=== PATIENT | female | born 1940 | race Caucasian/White ===

== ENCOUNTER → 2017-02-21 | Day surgery (SDC) | payer MEDICARE, BC ==
[~2017-02-21] MED LIST: AMOX500C PO; ARIC10TA PO; ARIC10TA2 PO; ASCO500T PO; ASPI1TAB69 PO; ASPI81TA11 PO; CLON1 PO; LEXA10TA PO; LIDOCAINE HCL 1% 30 ML VIAL INFIL ONE; MEPERIDINE HCL 25 MG/ML VIAL IV ONE; MIDAZOLAM HCL 2 MG/2 ML VIAL IV ONE; MOTR200T4 PO; MULT-135 PO; MULTTAB67 PO; NEXI20CA PO; OXYC-433 PO; PERC10TA27 PO; POTA-163 PO; PROPOFOL 200 MG/20 ML AMP IV ONE; SODIUM CHLORIDE 0.9% 10 ML VIAL ONE; TORS20TA PO; TRAZ300T2 PO; TRAZ50TA12 PO; VITA10007 PO; diphenhydrAMINE HCL 50 MG/ML VIAL IV ONE; methylPREDNISolone ACETATE 40 MG/ML VIAL I-ARTICULR ONE
--- NOTE | 2017-02-25 15:49 | M6 ---
cc: CELESTINO JOHNSON M.D. DATE: 02/21/2017 DATE OF : 1940. PROCEDURE Radiofrequency rhizotomy multiple bilateral cervical facet joints (bilateral C3-4, C4-5 at C5-6 facet joints. History and physical was completed and signed. Consent was signed. Procedure site was marked. Medications were listed and reconciled. Pain score was recorded. Allergies were noted. Time out was taken. Fluoroscopy time was recorded where applicable. Sedation was administered or directed by Dr. Johnson. The patient was given oxygen. The patient was monitored by a registered nurse. Total procedure time was greater than 15 minutes. IV was started, blood pressure cuff, pulse oximeter and EKG were applied. The patient was placed in the prone position on a Suhail table, sedated with small amounts of Versed and propofol titrated to effect. Vital signs were monitored and remained stable throughout the procedure. The cervical area was prepped with alcohol and 10% Betadine solution and draped with sterile drapes. Fluoroscopy was used to visualize the target areas which were the "waist" between the cervical facet joints bilaterally at C3-4, C4-5 and C5-6. The skin was infiltrated with 1% Xylocaine using a 27 gauge needle. Then an insulated 20-gauge radiofrequency needle with a 5-mm tip was advanced to the above-mentioned target areas. Fluoroscopy was used to confirm the needle was not near the nerve root. Once properly positioned, thermal lesions took place at 80 degrees centigrade times 100 seconds. This was followed by injection of a small amount of Depo-Medrol at each location for a total of 60 mg of Depo-Medrol. Following the procedure, the patient was taken to the recovery room with stable vital signs, neurologically intact. W. MD GABI Diggs/VICTOR MANUEL /8:15 AM /3:38 PM
== END | disposition home or self-care (01) ==
LOC: PHSDC 06:38
PROVIDERS: ATTEND Pain Medicine Interventional Pain Medicine
DX: M54.2 Cervicalgia (principal)
CPT/HCPCS: 64633; 64634; 99152; 99153; J1030; J1200; J2175; J2250; 64636

== ENCOUNTER → 2017-04-27 | Outpatient (CLI) | payer MEDICARE, BC ==
[~2017-04-27] MED LIST changes: -AMOX500C PO; -ARIC10TA PO; -ASPI1TAB69 PO; -LIDOCAINE HCL 1% 30 ML VIAL INFIL ONE; -MEPERIDINE HCL 25 MG/ML VIAL IV ONE; -MIDAZOLAM HCL 2 MG/2 ML VIAL IV ONE; -MOTR200T4 PO; -MULT-135 PO; -PERC10TA27 PO; -PROPOFOL 200 MG/20 ML AMP IV ONE; -SODIUM CHLORIDE 0.9% 10 ML VIAL ONE; -TRAZ50TA12 PO; -VITA10007 PO; -diphenhydrAMINE HCL 50 MG/ML VIAL IV ONE; -methylPREDNISolone ACETATE 40 MG/ML VIAL I-ARTICULR ONE
[2017-04-27 14:15] LABS: GLUCOSE,URINE NEG (NEG); KETONE, URINE NEG (NEG); NITRITE,URINE NEG (NEG); PH, URINE 5.5 (5.0-8.5)
[2017-04-27 14:23] LABS: BLOOD, URINE MOD (NEG)
[2017-04-27 14:25] LABS: BASOPHIL % 0.6 % (0.0-2.0); EOSINOPHIL # 0.2 TH/MM3 (0-0.4); EOSINOPHIL % 2.2 % (0.0-4.0); HEMATOCRIT 40.7 % (35.0-46.0); HEMO FLAGS DIFF FINAL; LYMPH % 31.9 % (9.0-44.0); LYMPHOCYTE # 2.3 TH/MM3 (1.0-4.8); MEAN CELL VOLUME 91.2 FL (80.0-100.0); MEAN CORPUSCULAR HEMOGLOBIN 29.9 PG (27.0-34.0); MEAN CORPUSCULAR HGB CONC 32.8 % (32.0-36.0); MONO % 8.6 % (0.0-8.0); NEUT % 56.7 % (16.0-70.0); PLATELET COUNT 227 TH/MM3 (150-450); RED BLOOD COUNT 4.46 MIL/MM3 (4.00-5.30); WHITE BLOOD COUNT 7.1 TH/MM3 (4.0-11.0)
[2017-04-27 14:29] LABS: METHOD OF COLLECTION CLEAN CATCH; URINE COLOR YELLOW (YELLW/STRAW)
[2017-04-27 14:30] LABS: COMMENT (UR) CULT NOT INDICATED; CULTURE IF INDICATED CULT NOT INDICATED; RBC, URINE 15-19 /hpf (0-3); SQUAMOUS EPITHELIAL CELL URINE 0-5 /hpf (0-5); WBC, URINE 0-2 /hpf (0-5)
== END ==
LOC: PHPRE 12:52
PROVIDERS: ATTEND Pain Medicine Interventional Pain Medicine
DX: Z01.812 Encounter for preprocedural laboratory examination (principal); Z45.49 Encounter for adjustment and management of other implanted nervous system device
CPT/HCPCS: 36415; 81001; 84132; 85025

== ENCOUNTER → 2017-05-04 | Day surgery (SDC) | payer MEDICARE, BC ==
[~2017-05-04] VITALS: Ht 162.6 cm; Wt 78.6 kg
[~2017-05-04] MED LIST changes: +BUPIVACAINE/EPINEPHRINE 0.5% PF 30 ML VIAL ONE; +CHLORHEXIDINE GLUCONATE 2 % 1 PACK (2 CLOTHS) TOPICAL PRN; +FAMOTIDINE 20 MG/2 ML VIAL ONE; +HYDROmorphone HCL PF 4 MG/ML VIAL OTHER ONE; +INSULIN HUMAN REGULAR 1,000 UNITS/10 ML VIAL SQ PRN; +LACTATED RINGER'S 1000 ML INJ 1,000 ML ONE; +LACTATED RINGER'S 1000 ML IV PRN; +METOPROLOL TARTRATE 25 MG TAB PO PRN; +MIDAZOLAM HCL 2 MG/2 ML VIAL ONE; +ONDANSETRON HCL 4 MG/2 ML VIAL IV PUSH ONE; +POVIDONE IODINE 5% (ANTISEPSIS KIT) 4 APPLICATIONS EACH NARE PRN; +PROPOFOL 200 MG/20 ML AMP IV ONE; +SODIUM CHLORID 0.9% 500 ML IV PRN; +SODIUM CHLORIDE 0.9% 20 ML VIAL ONE; +SODIUM CHLORIDE 0.9% INJ 100 ML ONE; +SODIUM CHLORIDE 0.9% INJ 50 ML ONE; +VANCOMYCIN 500 MG VIAL ONE; +VANCOMYCIN 500 MG/NS 100 ML IV PRN; +ceFAZolin 1,000 MG/NS 100 ML IV SCH; +ceFAZolin INJ 1,000 MG VIAL ONE; +oxyCODONE/ACETAMINOPHEN 5 MG/325 MG TAB ONE
[2017-05-04 10:01] VITALS: BP 125/76; PULSE 74; RESP 24; TEMP 98; O2SAT 95
[2017-05-04 12:39] VITALS: PULSE 68
[2017-05-04 13:15] VITALS: TEMP 97.8
[2017-05-04 14:00] VITALS: BP 113/62; PULSE 77; RESP 14; O2SAT 98
--- NOTE | 2017-05-06 23:14 | M6 ---
cc: Marianne GLASGOW DATE 05/04/2017 DATE OF 1940 PROCEDURE Replacement of Medtronics SynchroMed pump. PREPROCEDURE DIAGNOSIS End of life of Medtronic SynchroMed pump POSTPROCEDURE DIAGNOSIS End of life of Medtronic SynchroMed pump PROCEDURE NOTE IV was started in the holding area. The patient was given IV antibiotics, taken to the operating room, placed in the supine position. All pressure points were checked and padded. She was given general anesthesia. Her abdomen was scrubbed with Chloraprep and draped with sterile drapes. The skin over the implanted pump in the right subcostal area was infiltrated with 0.5% Marcaine containing epinephrine. Then an incision was made and sharp and blunt dissection were used to free the implanted pump from the underlying tissue. Then, a new Medtronics SynchroMed pump was filled with sterile morphine solution on a side table and placed in a Dacron cuff. Then the old pump was removed from the intrathecal catheter and the new pump was connected to the intrathecal catheter by snapping the receptor over the nipple on the pump. Then the redundant catheter was placed behind the pump. The new pump was placed in the subcutaneous pocket and anchored to the underlying tissue using 2-0 Ethibond sutures. Then the incision was irrigated with Betadine solution and closure took place with 3-0 Monocryl in the subcuticular tissue and 3-0 nylon on the skin. Incisions were covered with sterile adhesive dressings. The patient was taken to the recovery room with stable vital signs neurologically intact. MD GABI Arevalo/ /12:48 PM /11:13 PM
== END | disposition home or self-care (01) ==
LOC: PHSDC 09:29
PROVIDERS: ATTEND Pain Medicine Interventional Pain Medicine
DX: Z45.49 Encounter for adjustment and management of other implanted nervous system device (principal)
CPT/HCPCS: 00300; 62362; C1772; J0690; J1170; J2250; J2405; J3010; J3370; J7120

== ENCOUNTER → 2017-12-25 | Day surgery (SDC) | payer MEDICARE, BC ==
[~2017-12-25] MED LIST changes: -ARIC10TA2 PO; +ARIC10TA9 PO; -ASPI81TA11 PO; +ASPI81TA23 PO; +BUPIVACAINE HCL PF 0.5% 30 ML VIAL ONE; -BUPIVACAINE/EPINEPHRINE 0.5% PF 30 ML VIAL ONE; -CHLORHEXIDINE GLUCONATE 2 % 1 PACK (2 CLOTHS) TOPICAL PRN; -FAMOTIDINE 20 MG/2 ML VIAL ONE; -HYDROmorphone HCL PF 4 MG/ML VIAL OTHER ONE; -INSULIN HUMAN REGULAR 1,000 UNITS/10 ML VIAL SQ PRN; -LACTATED RINGER'S 1000 ML INJ 1,000 ML ONE; -LACTATED RINGER'S 1000 ML IV PRN; -METOPROLOL TARTRATE 25 MG TAB PO PRN; -MIDAZOLAM HCL 2 MG/2 ML VIAL ONE; -ONDANSETRON HCL 4 MG/2 ML VIAL IV PUSH ONE; -POVIDONE IODINE 5% (ANTISEPSIS KIT) 4 APPLICATIONS EACH NARE PRN; -SODIUM CHLORID 0.9% 500 ML IV PRN; -SODIUM CHLORIDE 0.9% 20 ML VIAL ONE; -SODIUM CHLORIDE 0.9% INJ 100 ML ONE; -SODIUM CHLORIDE 0.9% INJ 50 ML ONE; +TRIAMCINOLONE ACETONIDE 40 MG/ML VIAL I-ARTICULR ONE; -VANCOMYCIN 500 MG VIAL ONE; -VANCOMYCIN 500 MG/NS 100 ML IV PRN; -ceFAZolin 1,000 MG/NS 100 ML IV SCH; -ceFAZolin INJ 1,000 MG VIAL ONE; +methylPREDNISolone ACETATE 40 MG/ML VIAL I-ARTICULR ONE; -oxyCODONE/ACETAMINOPHEN 5 MG/325 MG TAB ONE
--- NOTE | 2017-12-25 20:39 | M6 ---
cc: CELESTINO JOHNSON M.D. DATE: 12/25/2017 DATE OF 1940 PROCEDURE Fluoroscopically guided injection bilateral sacroiliac joints. History and physical was completed and signed. Consent was signed. Procedure site was marked. Medications were listed and reconciled. Pain score was recorded. Allergies were noted. Time out was taken. Fluoroscopy time was recorded where applicable. Sedation was administered or directed by Dr. Johnson. The patient was given oxygen. The patient was monitored by a registered nurse. Total procedure time was greater than 15 minutes. PROCEDURE NOTE: IV was started, blood pressure cuff, pulse oximeter and EKG were applied. The patient was placed in the prone position on a Suhail table sedated with small amounts of propofol titrated to effect. Vital signs were monitored and remained stable throughout the procedure. Sacral area was prepped with alcohol and 10% Betadine solution and draped with sterile drapes. Fluoroscopy was used shooting from medial to lateral to clearly visualize the posterior joint line of the bilateral sacroiliac joints. Separate sterile 22-gauge 5-inch spinal needles were advanced into these joints under fluoroscopic guidance. There was negative aspiration for blood or any other type of fluid and at each location the patient was given 2 mL of 0.5% Marcaine, 20 mg of Depo-Medrol, 20 mg of Kenalog. Following the procedure the patient was taken to the recovery room with stable vital signs neurologically intact. She will be evaluated immediately and with followup to determine if she has a subjective decrease in her usual pain and a corresponding objective increase in her functional capabilities. WMD GABI Slade/HODA /9:42 AM /8:32 PM
== END | disposition home or self-care (01) ==
LOC: PHSDC 07:44
PROVIDERS: ATTEND Pain Medicine Interventional Pain Medicine
DX: M54.5 Low back pain (principal); M25.572 Pain in left ankle and joints of left foot; M25.571 Pain in right ankle and joints of right foot
CPT/HCPCS: 99152; G0260; J1030; J3301; 27096

== ENCOUNTER 2018-01-20 16:57 | Emergency (ER) | payer MEDICARE, BC ==
[~2018-01-20] VITALS: Ht 165.1 cm; Wt 74.0 kg
[~2018-01-20 16:57] MED LIST changes: -BUPIVACAINE HCL PF 0.5% 30 ML VIAL ONE; -PROPOFOL 200 MG/20 ML AMP IV ONE; -TRIAMCINOLONE ACETONIDE 40 MG/ML VIAL I-ARTICULR ONE; -methylPREDNISolone ACETATE 40 MG/ML VIAL I-ARTICULR ONE
[2018-01-20 17:03] VITALS: BP 135/60; PULSE 79; RESP 16; TEMP 98.1; O2SAT 98
[2018-01-20] MEDS ORDERED: METF1000 PO (17:24)
[2018-01-20 17:55] VITALS: O2SAT 98
--- NOTE | 2018-01-20 17:57 | PD ---
HPI Chief Complaint: Chest Pain Time Seen by Provider: 17:53 Travel History International Travel<30 days: No Contact w/Intl Traveler<30days: No Traveled to known affect area: No History of Present Illness HPI Patient presents with complaints of 3 days of chest discomfort. States it is radiating down her right arm. States that she is mildly short of breath. Reports sinus pain and pressure general malaise and feet subjective fever. Positive for flu shot this year. Additionally complains of nausea, denies vomiting, denies diarrhea. No new rashes. No history of lung disease. No history of cardiac disease. She is a diabetic. Non-smoker. PFSH Past Medical History Arthritis: Yes Blood Disorders: No Anxiety: Yes Depression: Yes Cancer: Yes (SKIN) Cardiovascular Problems: Yes (MURMUR) COPD: Yes (hx of bronchitis frequently,hx of 5 spontaneous pnuemothroax) Diabetes: Yes Patient Takes Glucophage: Yes Diminished Hearing: No Endocrine: No Fibromyalgia: Yes Gastrointestinal Disorders: Yes (REFLUX, CHRONIC CONSTIPATION, DIVERTICULITIS) GERD: Yes Genitourinary: Yes (IMPLANT TO STIMULATE BLADDER) Hepatitis: No Hiatal Hernia: Yes Hypertension: Yes Immune Disorder: Yes (FIBROMYALGIA) Implanted Vascular Access Dvce: Yes (PAIN PUMP) Medical other: Yes (ELEVATED SERUM CHROMOGRANIN LEVEL) Musculoskeletal: Yes (OSTEOARTHRITIS, LUMBAR PAIN) Neurologic: Yes (OCCIPITAL NEURALGIA, FIBROMYALGIA) Psychiatric: Yes (DEPRESSION/ ANXIETY HX) Reproductive: No Respiratory: Yes (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 CD LEADS, CERVICAL Cardiac Surgery: No Ear Surgery: No Endocrine Surgery: No Eye Surgery: Yes (BILATERAL CATARACT EXTRACTION ) Genitourinary Surgery: Yes (BLADDER STIMULATOR LEFT BUTTOCKS) Gynecologic Surgery: Yes (OOPHERECTOMY, TOTAL HYSTERECTOMY) Hysterectomy: Yes (1995) Joint Replacement: Yes (BILATERAL KNEE; TOTAL LEFT HIP) Neurologic Surgery: Yes (3 LUMBAR SURGERIES; ANT CERV FUSION ) Oral Surgery: Yes (T&A) Pacemaker: No Thoracic Surgery: Yes (BILAT BREAST IMPLANTS X 2) Tonsillectomy: Yes (AND ADENOIDS) Other Surgery: Yes (back x 3) Social History Alcohol Use: No Tobacco Use: No (QUIT 35-40 YRS AGO) Substance Use: No Allergies-Medications (Allergen,Severity, Reaction): Coded Allergies: Sulfa (Sulfonamide Antibiotics) (Unverified Allergy, Severe, ERYTHEMA NODOSUM, 01/20/18) morphine (Unverified Allergy, Severe, itching, 01/20/18) codeine (Unverified Allergy, Intermediate, NAUSEA;LIGHT HEADED; FAINT, ) ciprofloxacin (Unverified Adverse Reaction, Severe, Cramping, 01/20/18) ABDOMINAL PAIN PT DENIES ALLERGY ON 01/22/15 Uncoded Allergies: MACADEMIA NUTS (Allergy, Unknown, VOMITING AND DIARRHEA, 12/03/15) Reported Meds & Prescriptions Reported Meds & Active Scripts Active Reported Metformin (Metformin HCl) 1,000 Mg Tab Unknown Dose PO BIDPC Klonopin (Clonazepam) 1 Mg Tab 1 Mg PO TID Ascorbic Acid 500 Mg Tab 1,000 Mg PO DAILY Aspirin EC (Aspirin) 81 Mg Tabdr 81 Mg PO DAILY Aricept (Donepezil HCl) 10 Mg Tablet 10 Mg PO DAILY Multiple Vitamin 1 Tab 1 Tab PO DAILY Oxycodone-Acetaminophen 10-325 mg Tab 1 Tab PO Q4H PRN Trazodone (Trazodone HCl) 300 Mg Tab 50 Mg PO HS Potassium Chloride ER (Potassium Chloride) 20 Meq Tab 20 Meq PO DAILY Torsemide 20 Mg Tab 20 Mg PO DAILY Nexium (Esomeprazole DR) 20 Mg Capdr 40 Mg PO BID Lexapro (Escitalopram Oxalate) 10 Mg Tab 20 Mg PO HS Review of Systems General / Constitutional: Positive: Fever Eyes: No: Visual changes HENT: Positive: Congestion, No: Headaches Cardiovascular: Positive: Chest Pain or Discomfort Respiratory: No: Shortness of Breath Gastrointestinal: No: Abdominal Pain Genitourinary: No: Dysuria Musculoskeletal: No: Pain Skin: No Rash Neurologic: No: Weakness Psychiatric: No: Depression Endocrine: No: Polydipsia Hematologic/Lymphatic: No: Easy Bruising Physical Exam Narrative GENERAL: Well-nourished, well-developed patient. SKIN: Focused skin assessment warm/dry. HEAD: Normocephalic. EYES: No scleral icterus. No injection or drainage. NECK: Supple, trachea midline. No JVD or lymphadenopathy. CARDIOVASCULAR: Regular rate and rhythm without murmurs, gallops, or rubs. RESPIRATORY: Breath sounds equal bilaterally. No accessory muscle use. GASTROINTESTINAL: Abdomen soft, non-tender, nondistended. MUSCULOSKELETAL: No cyanosis, or edema. BACK: Nontender without obvious deformity. No CVA tenderness. Data Data Last Documented VS Vital Signs Date Time Temp Pulse Resp B/P (MAP) Pulse Ox O2 Delivery O2 Flow Rate FiO2 01/20/18 18:11 101/51 (68) 98/55 (69) 01/20/18 17:55 98 Room Air 01/20/18 17:15 72 01/20/18 17:03 98.1 16 Orders Orders Electrocardiogram (01/20/18 17:53) Ckmb (Isoenzyme) Profile (01/20/18 17:53) Complete Blood Count With Diff (01/20/18 17:53) Comprehensive Metabolic Panel (01/20/18 17:53) Magnesium (Mg) (01/20/18 17:53) Prothrombin Time / Inr (Pt) (01/20/18 17:53) Act Partial Throm Time (Ptt) (01/20/18 17:53) Troponin I (01/20/18 17:53) Ecg Monitoring (01/20/18 17:53) Bilateral Bp Monitoring (01/20/18 17:53) Iv Access Insert/Monitor (01/20/18 17:53) Oximetry (01/20/18 17:53) Oxygen Administration (01/20/18 17:53) Aspirin Chew (Aspirin Chew) (01/20/18 18:00) Sodium Chloride 0.9% Flush (Ns Flush) (01/20/18 18:00) Chest, Pa & Lat (01/20/18 17:53) Influenzae A/B Antigen (01/20/18 17:53) Ondansetron Inj (Zofran Inj) (01/20/18 18:00) CKMB (01/20/18 18:05) CKMB% (01/20/18 18:05) Labs Laboratory Tests Test 01/20/18 18:05 White Blood Count 4.7 TH/MM3 Red Blood Count 4.32 MIL/MM3 Hemoglobin 10.8 GM/DL Hematocrit 34.9 % Mean Corpuscular Volume 80.9 FL Mean Corpuscular Hemoglobin 25.0 PG Mean Corpuscular Hemoglobin Concent 30.9 % Red Cell Distribution Width 16.3 % Platelet Count 180 TH/MM3 Mean Platelet Volume 8.1 FL Neutrophils (%) (Auto) 60.3 % Lymphocytes (%) (Auto) 23.8 % Monocytes (%) (Auto) 13.8 % Eosinophils (%) (Auto) 1.3 % Basophils (%) (Auto) 0.8 % Neutrophils # (Auto) 2.8 TH/MM3 Lymphocytes # (Auto) 1.1 TH/MM3 Monocytes # (Auto) 0.7 TH/MM3 Eosinophils # (Auto) 0.1 TH/MM3 Basophils # (Auto) 0.0 TH/MM3 CBC Comment DIFF FINAL Differential Comment Prothrombin Time 10.2 SEC Prothromb Time International Ratio 1.0 RATIO Activated Partial Thromboplast Time 28.9 SEC Blood Urea Nitrogen 19 MG/DL Creatinine 0.79 MG/DL Random Glucose 89 MG/DL Total Protein 6.6 GM/DL Albumin 3.0 GM/DL Calcium Level 8.6 MG/DL Magnesium Level 2.0 MG/DL Alkaline Phosphatase 85 U/L Aspartate Amino Transf (AST/SGOT) 37 U/L Alanine Aminotransferase (ALT/SGPT) 20 U/L Total Bilirubin 0.1 MG/DL Sodium Level 138 MEQ/L Potassium Level 4.8 MEQ/L Chloride Level 104 MEQ/L Carbon Dioxide Level 27.6 MEQ/L Anion Gap 6 MEQ/L Estimat Glomerular Filtration Rate 71 ML/MIN Total Creatine Kinase 105 U/L MDM Medical Decision Making Medical Screen Exam Complete: Yes Emergency Medical Condition: Yes Differential Diagnosis Acute coronary syndrome, sinusitis, influenza Narrative Course Assessment plan discussed with patient at bedside. EKG reveals a sinus rhythm rate of 64. Positive for flu B. Cardiac enzymes negative. Diagnosis Primary Impression: Influenza B Patient Instructions: General Instructions Additional Instructions: Encouraged rest fluids and Motrin or Tylenol. Follow-up with PCP. Return to emergency with any onset of new symptoms. Med/Other Pt SpecificInfo: Prescription(s) given Scripts Oseltamivir (Tamiflu) 75 Mg Cap 75 MG PO BID for Mgmt Viral Infection for 5 Days, #10 CAP 0 Refills Prov: Sebas Carter MD 01/20/18 Sebas Carter MD Jan 20, 2018 17:57
[2018-01-20] MEDS ORDERED: SODIUM CHLORIDE 0.9% FLUSH 10 ML FLUSH IVF PRN (18:00)
[2018-01-20] MEDS ORDERED: ASPIRIN 81 MG CHEW TAB PO ONE (18:00)
[2018-01-20] MEDS ORDERED: ONDANSETRON HCL 4 MG/2 ML VIAL IV PUSH ONE (18:00)
[2018-01-20 18:11] VITALS: BP_SYST 101; BP_SYST 98; BP_DIAS 51; BP_DIAS 55
[2018-01-20 18:26] LABS: AUTOMATED NEUTROPHIL # 2.8 TH/MM3 (1.8-7.7); BASOPHIL % 0.8 % (0.0-2.0); CHLORIDE 104 MEQ/L (98-107); EOSINOPHIL # 0.1 TH/MM3 (0-0.4); EOSINOPHIL % 1.3 % (0.0-4.0); HEMATOCRIT 34.9 % (35.0-46.0); HEMOGLOBIN 10.8 GM/DL (11.6-15.3); LYMPH % 23.8 % (9.0-44.0); LYMPHOCYTE # 1.1 TH/MM3 (1.0-4.8); MEAN CELL VOLUME 80.9 FL (80.0-100.0); MEAN CORPUSCULAR HGB CONC 30.9 % (32.0-36.0); MEAN PLATELET VOLUME 8.1 FL (7.0-11.0); MONO % 13.8 % (0.0-8.0); MONOCYTE # 0.7 TH/MM3 (0-0.9); NEUT % 60.3 % (16.0-70.0); PLATELET COUNT 180 TH/MM3 (150-450); RED BLOOD COUNT 4.32 MIL/MM3 (4.00-5.30); RED CELL DISTRIBUTION WIDTH 16.3 % (11.6-17.2); SODIUM (NA) 138 MEQ/L (136-145); WHITE BLOOD COUNT 4.7 TH/MM3 (4.0-11.0)
--- NOTE | 2018-01-20 18:28 | RADRPT ---
EXAM DATE/TIME: 01/20/2018 18:13 [facility] COMPARISON: No previous studies available for comparison. INDICATIONS : On and off chest pain radiating into right arm for 3 days MEDICAL HISTORY : None. SURGICAL HISTORY : None. ENCOUNTER: Initial ACUITY: 3 days PAIN SCORE: 7/10 LOCATION: Bilateral chest FINDINGS: The heart size is normal. The lungs are free of focal consolidation. There is a calcified granuloma i n the right upper lung. There is a moderate to large hiatal hernia with air-fluid level seen. Surgica l hardware is seen in the upper lumbar spine. Stimulator leads are seen over the superficial soft tis sues at the lower thoracic and upper lumbar spine region. Surgical hardware seen in the cervical spin e. CONCLUSION: Moderate hiatal hernia. Joseph Garcia MD on January 20, 2018 at 18:24 Board Certified Radiologist. This report was verified electronically.
[2018-01-20 18:30] LABS: BICARBONATE 27.6 MEQ/L (21.0-32.0); BLOOD UREA NITROGEN 19 MG/DL (7-18); CALCIUM 8.6 MG/DL (8.5-10.1); GLUCOSE,RANDOM 89 MG/DL (74-106)
[2018-01-20 18:31] LABS: PROTHROMBIN TIME - PATIENT 10.2 SEC (9.8-11.6)
[2018-01-20 18:33] LABS: ALT (GPT) 20 U/L (10-53); AST (GOT) 37 U/L (15-37); CREATININE 0.79 MG/DL (0.50-1.00); GLOMERULAR FILTRATION RATE 71 ML/MIN (>89)
[2018-01-20 18:35] LABS: TOTAL BILIRUBIN ADULT 0.1 MG/DL (0.2-1.0); TOTAL PROTEIN 6.6 GM/DL (6.4-8.2)
[2018-01-20 18:36] LABS: ALKALINE PHOSPHATASE 85 U/L (45-117)
[2018-01-20 18:38] LABS: TROPONIN I LESS THAN 0.02 NG/ML (0.02-0.05)
[2018-01-20] MEDS ORDERED: OSEL75 PO (18:39)
[2018-01-20] MEDS ORDERED: ZOFR4TAB PO (18:43)
[2018-01-20 18:53] VITALS: BP 110/58
--- NOTE | 2018-01-21 19:56 | EKG ---
Date Performed: 01/20/2018 Time Performed: 17:36:17 PTAGE: 77 years EKG: ELECTRONIC ATRIAL PACEMAKER Since the previous tracing, no significant change noted ABNORMA L RHYTHM ECG PREVIOUS TRACING : 01/05/2015 13.33 DOCTOR: Deo Amaro Interpretating Date/Time 01/21/2018 19:52:19
== END 2018-01-20 18:57 | disposition home or self-care (01) ==
LOC: PHED 16:57
DX: J10.1 Influenza due to other identified influenza virus with other respiratory manifestations (principal); E11.9 Type 2 diabetes mellitus without complications; K21.9 Gastro-esophageal reflux disease without esophagitis; K44.9 Diaphragmatic hernia without obstruction or gangrene; F32.9 Major depressive disorder, single episode, unspecified; I10 Essential (primary) hypertension; M79.7 Fibromyalgia; J44.9 Chronic obstructive pulmonary disease, unspecified; Z79.84 Long term (current) use of oral hypoglycemic drugs; Z79.899 Other long term (current) drug therapy; Z87.891 Personal history of nicotine dependence
CPT/HCPCS: 71046; 80053; 82550; 82552; 83735; 84484; 85025; 85610; 85730; 87804; 93005; 96374; 99285; J2405

== ENCOUNTER 2018-01-25 17:25 | Emergency (ER) | payer MEDICARE, BC ==
[~2018-01-25] VITALS: Ht 165.1 cm; Wt 75.0 kg
[~2018-01-25 17:25] MED LIST changes: +METF1000 PO; +OSEL75 PO; +ZOFR4TAB PO
[2018-01-25 17:28] VITALS: BP 112/60; PULSE 87; RESP 16; TEMP 97.9; O2SAT 96
--- NOTE | 2018-01-25 17:51 | PD ---
HPI Chief Complaint: Musculoskeletal Complaint Time Seen by Provider: 17:36 Travel History International Travel<30 days: No Contact w/Intl Traveler<30days: No Traveled to known affect area: No History of Present Illness HPI 77 years old female complains of bilateral leg cramping, coughing congestion. Patient states that the cough and congestion started last week. Patient was seen by personal physician and flu test was positive. Patient was given prescription for Tamiflu. Patient states that she had persistent nasal congestion and dry cough. Patient denies any chest pain or shortness of breath. Patient states that she has mild aching headache. Patient denies any visual change. Patient denies any neck pain. Patient denies abdominal pain. Patient denies any nausea vomiting diarrhea. Patient complains of intermittent muscle cramps on the medial aspect of bilateral thigh area for the past 2 months. Patient was seen by personal physician for that. Patient states that she had blood test to check electrolytes and did not hear from her physician about the results. Patient denies any recent injury. Patient states that she has history chronic low back pain that is not new. Patient take potassium daily. PFSH Past Medical History Arthritis: Yes Blood Disorders: No Anxiety: Yes Depression: Yes Cancer: Yes (SKIN) Cardiovascular Problems: Yes (MURMUR) COPD: Yes (hx of bronchitis frequently,hx of 5 spontaneous pnuemothroax) Diabetes: Yes Diminished Hearing: No Endocrine: No Fibromyalgia: Yes Gastrointestinal Disorders: Yes (REFLUX, CHRONIC CONSTIPATION, DIVERTICULITIS) GERD: Yes Genitourinary: Yes (IMPLANT TO STIMULATE BLADDER) Hepatitis: No Hiatal Hernia: Yes Hypertension: Yes Immune Disorder: Yes (FIBROMYALGIA) Implanted Vascular Access Dvce: Yes (PAIN PUMP) Musculoskeletal: Yes (OSTEOARTHRITIS, LUMBAR PAIN) Neurologic: Yes (OCCIPITAL NEURALGIA, FIBROMYALGIA) Psychiatric: Yes (DEPRESSION/ ANXIETY HX) Reproductive: No Respiratory: Yes (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 CD LEADS, CERVICAL Cardiac Surgery: No Ear Surgery: No Endocrine Surgery: No Eye Surgery: Yes (BILATERAL CATARACT EXTRACTION ) Genitourinary Surgery: Yes (BLADDER STIMULATOR LEFT BUTTOCKS) Gynecologic Surgery: Yes (OOPHERECTOMY, TOTAL HYSTERECTOMY) Hysterectomy: Yes (1995) Joint Replacement: Yes (BILATERAL KNEE; TOTAL LEFT HIP) Neurologic Surgery: Yes (3 LUMBAR SURGERIES; ANT CERV FUSION ) Oral Surgery: Yes (T&A) Pacemaker: No Thoracic Surgery: Yes (BILAT BREAST IMPLANTS X 2) Tonsillectomy: Yes (AND ADENOIDS) Other Surgery: Yes (back x 3) Social History Alcohol Use: No Tobacco Use: No (QUIT 35-40 YRS AGO) Substance Use: No Allergies-Medications (Allergen,Severity, Reaction): Coded Allergies: Sulfa (Sulfonamide Antibiotics) (Unverified Allergy, Severe, ERYTHEMA NODOSUM, 01/25/18) morphine (Unverified Allergy, Severe, itching, 01/25/18) codeine (Unverified Allergy, Intermediate, NAUSEA;LIGHT HEADED; FAINT, ) ciprofloxacin (Unverified Adverse Reaction, Severe, Cramping, 01/25/18) ABDOMINAL PAIN PT DENIES ALLERGY ON 01/22/15 Uncoded Allergies: MACADEMIA NUTS (Allergy, Unknown, VOMITING AND DIARRHEA, 12/03/15) Reported Meds & Prescriptions Reported Meds & Active Scripts Active Zofran (Ondansetron HCl) 4 Mg Tab 4 Mg PO Q6HR PRN Reported Metformin (Metformin HCl) 1,000 Mg Tab Unknown Dose PO BIDPC Klonopin (Clonazepam) 1 Mg Tab 1 Mg PO TID Ascorbic Acid 500 Mg Tab 1,000 Mg PO DAILY Aspirin EC (Aspirin) 81 Mg Tabdr 81 Mg PO DAILY Aricept (Donepezil HCl) 10 Mg Tablet 10 Mg PO DAILY Multiple Vitamin 1 Tab 1 Tab PO DAILY Trazodone (Trazodone HCl) 300 Mg Tab 50 Mg PO HS Potassium Chloride ER (Potassium Chloride) 20 Meq Tab 20 Meq PO DAILY Torsemide 20 Mg Tab 20 Mg PO DAILY Nexium (Esomeprazole DR) 20 Mg Capdr 40 Mg PO BID Lexapro (Escitalopram Oxalate) 10 Mg Tab 20 Mg PO HS Review of Systems General / Constitutional: No: Fever Eyes: No: Visual changes HENT: Positive: Congestion, No: Headaches Cardiovascular: No: Chest Pain or Discomfort Respiratory: Positive: Cough, No: Shortness of Breath Gastrointestinal: No: Abdominal Pain Genitourinary: No: Dysuria Musculoskeletal: Positive: Pain Skin: No Rash Neurologic: No: Weakness Psychiatric: No: Depression Endocrine: No: Polydipsia Hematologic/Lymphatic: No: Easy Bruising Physical Exam Narrative GENERAL: Well-nourished, well-developed patient. SKIN: Focused skin assessment warm/dry. HEAD: Normocephalic. EYES: No scleral icterus. No injection or drainage. NECK: Supple, trachea midline. No JVD or lymphadenopathy. CARDIOVASCULAR: Regular rate and rhythm without murmurs, gallops, or rubs. RESPIRATORY: Breath sounds equal bilaterally. No accessory muscle use. GASTROINTESTINAL: Abdomen soft, non-tender, nondistended. MUSCULOSKELETAL: Patient has mild tenderness in palpation medial aspect of bilateral thigh area. Full range of motion lower extremity. No redness no heat noted. BACK: Nontender without obvious deformity. No CVA tenderness. Neurologic exam normal. Data Data Last Documented VS Vital Signs Date Time Temp Pulse Resp B/P (MAP) Pulse Ox O2 Delivery O2 Flow Rate FiO2 01/25/18 18:33 74 16 106/56 (73) 97 Room Air 01/25/18 17:28 97.9 Orders Orders Basic Metabolic Panel (Bmp) (01/25/18 17:42) Chest, Single Ap (01/25/18 17:42) Iv Access Insert/Monitor (01/25/18 17:42) Calcium Carbonate (Oscal) (01/25/18 19:00) Labs Laboratory Tests Test 01/25/18 18:20 Blood Urea Nitrogen 17 MG/DL Creatinine 0.65 MG/DL Random Glucose 113 MG/DL Calcium Level 8.3 MG/DL Sodium Level 141 MEQ/L Potassium Level 4.3 MEQ/L Chloride Level 108 MEQ/L Carbon Dioxide Level 26.3 MEQ/L Anion Gap 7 MEQ/L Estimat Glomerular Filtration Rate 89 ML/MIN [facility] Medical Decision Making Medical Screen Exam Complete: Yes Emergency Medical Condition: Yes Interpretation(s) Last Impressions Chest X-Ray 01/25/18 431 Signed Impressions: Service Date/Time: December 17:57 - CONCLUSION: No acute cardiopulmonary process. There is a moderate hiatal hernia.. Joseph Garcia MD 1850 PM. BMP within normal limits. Calcium 8.3. Differential Diagnosis Differential diagnosis including musculoskeletal, hypokalemia, electrolyte imbalance. Narrative Course 77 years old female with bilateral medial thigh muscle cramping for the past 2 months. Diagnosis Primary Impression: Muscle strain Additional Impression: Hypocalcemia Patient Instructions: General Instructions Additional Instructions: Take medication as needed for pain. Follow-up with personal physician and orthopedist if persistent problem. [id number] calcium supplement. Med/Other Pt SpecificInfo: Prescription(s) given Scripts Methocarbamol (Robaxin) 750 Mg Tab 750 MG PO QID for Muscle Spasm, #40 TAB 0 Refills Prov: Scotty Strange MD 01/25/18 Disposition: 01 DISCHARGE HOME Condition: Stable Scotty Strange MD Jan 25, 2018 17:51
--- NOTE | 2018-01-25 18:16 | RADRPT ---
EXAM DATE/TIME: 01/25/2018 17:57 [facility] COMPARISON: CHEST SINGLE AP, September 08, 2013, 20:30. INDICATIONS : Cough. MEDICAL HISTORY : Chronic obstructive pulmonary disease. Emphysema. Diabetes mellitus type II. SURGICAL HISTORY : None. ENCOUNTER: Initial ACUITY: 1 day PAIN SCORE: 0/10 LOCATION: Bilateral chest FINDINGS: The heart size is normal. The lungs are grossly clear. There is a moderate hiatal hernia. No effusion is seen. There is an anterior cervical fusion plate present. Electric lead is seen over the upper ab domen. Surgical hardware seen in the lumbar spine. CONCLUSION: No acute cardiopulmonary process. There is a moderate hiatal hernia.. Joseph Garcia MD on January 25, 2018 at 18:13 Board Certified Radiologist. This report was verified electronically.
[2018-01-25 18:33] VITALS: BP 106/56; PULSE 74; RESP 16; O2SAT 97
[2018-01-25 18:39] LABS: BICARBONATE 26.3 MEQ/L (21.0-32.0); CALCIUM 8.3 MG/DL (8.5-10.1)
[2018-01-25 18:43] LABS: CREATININE 0.65 MG/DL (0.50-1.00)
[2018-01-25] MEDS ORDERED: ROBA750T PO (18:55)
[2018-01-25] MEDS ORDERED: CALCIUM CARBONATE 1.25 GM (CA 500 MG) TAB PO ONE (19:00)
== END 2018-01-25 19:10 | disposition home or self-care (01) ==
LOC: PHED 17:25
DX: T14.8XXA Other injury of unspecified body region, initial encounter (principal); E83.51 Hypocalcemia; E11.9 Type 2 diabetes mellitus without complications; K44.9 Diaphragmatic hernia without obstruction or gangrene; K21.9 Gastro-esophageal reflux disease without esophagitis; X58.XXXA Exposure to other specified factors, initial encounter; Z79.84 Long term (current) use of oral hypoglycemic drugs
CPT/HCPCS: 71045; 80048; 99284

== ENCOUNTER 2018-04-16 21:24 | Emergency (ER) | payer MEDICARE, OTHER ==
[~2018-04-16] VITALS: Ht 157.5 cm; Wt 73.0 kg
[~2018-04-16 21:24] MED LIST changes: -OSEL75 PO; -OXYC-433 PO; +ROBA750T PO
[2018-04-16 21:40] VITALS: BP 129/62; PULSE 73; RESP 18; TEMP 97.9; O2SAT 99
[2018-04-16 22:28] LABS: BILIRUBIN, URINE NEG (NEG); BLOOD, URINE NEG (NEG); GLUCOSE,URINE NEG (NEG); KETONE, URINE NEG (NEG); NITRITE,URINE NEG (NEG); PH, URINE 5.5 (5.0-8.5); URINE COLOR YELLOW (YELLW/STRAW); URINE LEUKOCYTE ESTERASE SMALL (NEG)
[2018-04-16 22:32] LABS: BACTERIA, URINE RARE /hpf; RBC, URINE 0-3 /hpf (0-3); SQUAMOUS EPITHELIAL CELL URINE 0-5 /hpf (0-5)
[2018-04-16 22:37] LABS: CALCIUM 9.4 MG/DL (8.5-10.1); MAGNESIUM 2.2 MG/DL (1.5-2.5)
[2018-04-16 22:39] LABS: CREATININE 0.93 MG/DL (0.50-1.00)
--- NOTE | 2018-04-16 22:53 | PD ---
HPI Chief Complaint: Pain: Acute or Chronic Time Seen by Provider: 21:55 Travel History International Travel<30 days: No Contact w/Intl Traveler<30days: No Traveled to known affect area: No History of Present Illness HPI 77-year-old female presents to the emergency department private transportation the care of her neighbor for evaluation of muscle cramps. Patient states she has had muscle cramp issues for at least 2 months or longer. Patient has not seen a primary care provider regarding this complaint and has not been seen to by her pain management doctor regarding this complaint. Patient denies any fevers chills nausea vomiting diarrhea abdominal pain. Patient is concerned because the cramps are keeping her awake at night. 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 No new lower extremity numbness tingling weakness or ataxia gait. No new upper extremity numbness tingling or weakness. Patient states that she just feels like her hands are cramping. Patient has history of partial parathyroidectomy. Patient reports she has been very upset because her recently passed and she had a trip to [place] to give his options away in the [place]. Patient also went with her grandmother. Patient is unable to identify exacerbating or alleviating factors. Patient has been taking muscle relaxants at home without relief. PFSH Past Medical History Narrative Medical Anxiety depression COPD fibromyalgia GERD hypertension dyslipidemia Arthritis: Yes Blood Disorders: No Anxiety: Yes Depression: Yes Cancer: Yes (SKIN) Cardiovascular Problems: Yes (MURMUR) COPD: Yes (hx of bronchitis frequently,hx of 5 spontaneous pnuemothroax) Diabetes: Yes Patient Takes Glucophage: No (Pt poor historian ) Diminished Hearing: No Endocrine: No Fibromyalgia: Yes Gastrointestinal Disorders: Yes (REFLUX, CHRONIC CONSTIPATION, DIVERTICULITIS) GERD: Yes Genitourinary: Yes (IMPLANT TO STIMULATE BLADDER) Hepatitis: No Hiatal Hernia: Yes Hypertension: No Immune Disorder: Yes (FIBROMYALGIA) Implanted Vascular Access Dvce: Yes (PAIN PUMP) Medical other: Yes (ELEVATED SERUM CHROMOGRANIN LEVEL) Musculoskeletal: Yes (OSTEOARTHRITIS, LUMBAR PAIN) Neurologic: Yes (OCCIPITAL NEURALGIA, FIBROMYALGIA) Psychiatric: Yes (DEPRESSION/ ANXIETY HX) Reproductive: No Respiratory: Yes Immunizations Current: Yes Migraines: Yes Thyroid Disease: No Tetanus Vaccination: < 5 Years Influenza Vaccination: Yes ?: Not Menopausal: Yes Past Surgical History Abdominal Surgery: Yes (APPENDECTOMY, SEE OTHER SURGERIES) AICD: No Appendectomy: Yes Body Medical Devices: PAIN PUMP, BLADDER STIMULATOR, NERVE STIMULATOR, SP. CD LEADS, CERVICAL Cardiac Surgery: No Ear Surgery: No Endocrine Surgery: No Eye Surgery: Yes (BILATERAL CATARACT EXTRACTION ) Genitourinary Surgery: Yes (BLADDER STIMULATOR LEFT BUTTOCKS) Gynecologic Surgery: Yes (OOPHERECTOMY, TOTAL HYSTERECTOMY) Hysterectomy: Yes Joint Replacement: Yes (BILATERAL KNEE; TOTAL LEFT HIP) Neurologic Surgery: Yes (3 LUMBAR SURGERIES; ANT CERV FUSION ) Oral Surgery: Yes (T&A) Pacemaker: No Thoracic Surgery: Yes (BILAT BREAST IMPLANTS X 2) Tonsillectomy: Yes (AND ADENOIDS) Other Surgery: Yes (back x 3) Social History Alcohol Use: No Tobacco Use: No (QUIT 35-40 YRS AGO) Substance Use: No Allergies-Medications (Allergen,Severity, Reaction): Coded Allergies: Sulfa (Sulfonamide Antibiotics) (Verified Allergy, Severe, ERYTHEMA NODOSUM, 04/16/18) morphine (Verified Allergy, Severe, itching, 04/16/18) codeine (Verified Allergy, Intermediate, NAUSEA;LIGHT HEADED; FAINT, ) ciprofloxacin (Verified Adverse Reaction, Severe, Cramping, 04/16/18) ABDOMINAL PAIN PT DENIES ALLERGY ON 01/22/15 Uncoded Allergies: MACADEMIA NUTS (Allergy, Unknown, VOMITING AND DIARRHEA, 12/03/15) Reported Meds & Prescriptions Reported Meds & Active Scripts Active Macrobid (Nitrofurantoin Monoh/Nitrofur Macro) 100 Mg Cap 100 Mg PO BID 7 Days Robaxin (Methocarbamol) 750 Mg Tab 750 Mg PO QID Zofran (Ondansetron HCl) 4 Mg Tab 4 Mg PO Q6HR PRN Reported Metformin (Metformin HCl) 1,000 Mg Tab Unknown Dose PO BIDPC Klonopin (Clonazepam) 1 Mg Tab 1 Mg PO TID Ascorbic Acid 500 Mg Tab 1,000 Mg PO DAILY Aspirin EC (Aspirin) 81 Mg Tabdr 81 Mg PO DAILY Aricept (Donepezil HCl) 10 Mg Tablet 10 Mg PO DAILY Multiple Vitamin 1 Tab 1 Tab PO DAILY Trazodone (Trazodone HCl) 300 Mg Tab 50 Mg PO HS Potassium Chloride ER (Potassium Chloride) 20 Meq Tab 20 Meq PO DAILY Torsemide 20 Mg Tab 20 Mg PO DAILY Nexium (Esomeprazole DR) 20 Mg Capdr 40 Mg PO BID Lexapro (Escitalopram Oxalate) 10 Mg Tab 20 Mg PO HS Review of Systems Except as stated in HPI: all other systems reviewed are Neg General / Constitutional: No: Fever, Chills HENT: No: Sore Throat, Congestion Cardiovascular: No: Chest Pain or Discomfort Respiratory: No: Shortness of Breath Gastrointestinal: No: Vomiting Genitourinary: No: Frequency, Decreased Urinary Output, Flank Pain Musculoskeletal: Positive: Pain (LBP), No: Myalgias, Arthralgias Skin: No Rash Neurologic: No: Weakness, Dizziness Psychiatric: No: Anxiety Hematologic/Lymphatic: No: Lymph Node Enlargement Physical Exam Narrative GENERAL: Well-developed well-nourished female no acute distress no respiratory distress no carpopedal spasm GCS 15 patient in no extremis cardiac enzymes and laboratory values found to be grossly normal range SKIN: Warm and dry. HEAD: Normocephalic. EYES: No scleral icterus. No injection or drainage. NECK: Supple, trachea midline. No JVD or lymphadenopathy. CARDIOVASCULAR: Regular rate and rhythm without murmurs, gallops, or rubs. RESPIRATORY: Breath sounds equal bilaterally. No accessory muscle use. GASTROINTESTINAL: Abdomen soft, non-tender, nondistended. MUSCULOSKELETAL: No cyanosis, or edema. BACK: Nontender without obvious deformity. No CVA tenderness. Data Data Last Documented VS Vital Signs Date Time Temp Pulse Resp B/P (MAP) Pulse Ox O2 Delivery O2 Flow Rate FiO2 04/16/18 22:00 16 04/16/18 21:40 97.9 73 129/62 (84) 99 Orders Orders Basic Metabolic Panel (Bmp) (04/16/18 21:56) Magnesium (Mg) (04/16/18 21:56) Urinalysis - C+S If Indicated (04/16/18 21:56) Ketorolac Inj (Toradol Inj) (04/16/18 23:00) Orphenadrine Inj (Norflex Inj) (04/16/18 23:00) Ed Discharge Order (04/16/18 22:53) Nitrofurantoin Monohyd Macrocr (Macrobid (04/16/18 23:15) Labs Laboratory Tests Test 04/16/18 22:10 Urine Color YELLOW Urine Turbidity CLEAR Urine pH 5.5 Urine Specific [place] 1.010 Urine Protein NEG mg/dL Urine Glucose (UA) NEG mg/dL Urine Ketones NEG mg/dL Urine Occult Blood NEG Urine Nitrite NEG Urine Bilirubin NEG Urine Urobilinogen 0.2 MG/DL Urine Leukocyte Esterase SMALL Urine RBC 0-3 /hpf Urine WBC 6-8 /hpf Urine Squamous Epithelial Cells 0-5 /hpf Urine Bacteria RARE /hpf Microscopic Urinalysis Comment CULT NOT INDICATED Blood Urea Nitrogen 28 MG/DL Creatinine 0.93 MG/DL Random Glucose 92 MG/DL Calcium Level 9.4 MG/DL Magnesium Level 2.2 MG/DL Sodium Level 140 MEQ/L Potassium Level 4.3 MEQ/L Chloride Level 105 MEQ/L Carbon Dioxide Level 29.0 MEQ/L Anion Gap 6 MEQ/L Estimat Glomerular Filtration Rate 59 ML/MIN MDM Medical Decision Making Medical Screen Exam Complete: Yes Emergency Medical Condition: Yes Medical Record Reviewed: Yes Interpretation(s) CBC & BMP Diagram 04/16/18 22:10 Calcium Level 9.4, Magnesium Level 2.2 Vital Signs Date Time Temp Pulse Resp B/P (MAP) Pulse Ox O2 Delivery O2 Flow Rate FiO2 04/16/18 22:00 16 04/16/18 21:40 97.9 73 18 129/62 (84) 99 Differential Diagnosis UTI muscle cramps electrolyte disturbance Narrative Course Patient given an injection of Toradol and Norflex Urinalysis found to be abnormal given first dose of oral antibiotic Patient doing comfortably well; self outpatient management Diagnosis Primary Impression: UTI (urinary tract infection) Additional Impression: Muscle cramps Referrals: Pain Management call for appointment Primary Care Physician call for appointment Patient Instructions: General Instructions Additional Instructions: Increase fluid hydration Follow-up with your pain management doctor and primary care provider call office to schedule appointment Complete course of antibiotic as prescribed Return to the emergency department for any concerns or change in condition Take as tolerated acetaminophen for minor pain and ibuprofen per package directions as needed for pain greater than 5/10 intensity. Med/Other Pt SpecificInfo: Prescription(s) given Scripts Nitrofurantoin Monohydrate Macrocrystals (Macrobid) 100 Mg Cap 100 MG PO BID for Infection for 7 Days, #14 CAP 0 Refills Prov: Ignacia Gutierrez MD 04/16/18 Ignacia Gutierrez MD Apr 16, 2018 22:53
[2018-04-16] MEDS ORDERED: ORPHENADRINE INJ 60 MG/2 ML AMP IM ONE (23:00)
[2018-04-16] MEDS ORDERED: KETOROLAC TROMETHAMINE 60 MG/2 ML (IM) VIAL IM ONE (23:00)
[2018-04-16] MEDS ORDERED: MACR100C2 PO (23:04)
[2018-04-16] MEDS ORDERED: NITROFURANTOIN MONOHYD MACROCR 100 MG CAP PO ONE (23:15)
== END 2018-04-16 23:19 | disposition home or self-care (01) ==
LOC: PHED 21:24
DX: N39.0 Urinary tract infection, site not specified (principal); R25.2 Cramp and spasm; I10 Essential (primary) hypertension; J44.9 Chronic obstructive pulmonary disease, unspecified; E11.9 Type 2 diabetes mellitus without complications; Z88.2 Allergy status to sulfonamides; Z88.5 Allergy status to narcotic agent
CPT/HCPCS: 80048; 81001; 83735; 96372; 99283; J1885; J2360

== ENCOUNTER 2018-10-04 16:36 | Observation (INO) ==
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
[2018-10-04] MEDS ORDERED: Sod Chloride 0.9% Inj 1,000 ML IV.CONT SCH (19:00)
[2018-10-04 19:30] LABS: Baso % (Auto) 0.5 % (0.0-2.0); Eos # (Auto) 0.2 th/mm3 (0.0-0.4); Eos % (Auto) 3.4 % (0.0-4.0); Hematocrit 34.3 % (35.0-46.0); Lymph # (Auto) 2.1 th/mm3 (1.0-4.8); Lymph % (Auto) 31.8 % (9.0-44.0); Mean Corpuscular HGB Conc 32.1 % (32.0-36.0); Mean Corpuscular Hemoglobin 25.4 pg (27.0-34.0); Mean Corpuscular Volume 79.3 fL (80.0-100.0); Mean Platelet Volume 7.8 fL (7.0-11.0); Mono # (Auto) 0.6 th/mm3 (0.0-0.9); Mono % (Auto) 9.1 % (0.0-8.0); Neut # (Auto) 3.7 th/mm3 (1.8-7.7); Neut % (Auto) 55.2 % (16.0-70.0); Platelet Count 258 th/mm3 (150-450); Red Blood Count 4.32 mil/mm3 (4.00-5.30); Red Cell Distribution Width 15.6 % (11.6-17.2); White Blood Count 6.6 th/mm3 (4.0-11.0)
--- NOTE | 2018-10-04 19:42 | CT ---
EXAM DATE: 10/04/2018 7:36 PM EST AGE/SEX: 77 years / Female INDICATIONS: Weakness. CLINICAL DATA: This is the patient's initial encounter. Patient reports that signs and symptoms have been present for 1 day and indicates a pain score of 0/10. MEDICAL/SURGICAL HISTORY: None. Hysterectomy. Appendectomy. Bilateral knee replacement RADIATION DOSE: 57.54 CTDI (mGy) COMPARISON: No prior exams available for comparison. TECHNIQUE: CT of the head without contrast. Using automated exposure control and adjustment of the mA and/or kV according to patient size, radiation dose was kept as low as reasonably achievable to ob tain optimal diagnostic quality images. DICOM format image data is available electronically for revi ew and comparison. FINDINGS: Cerebrum: The ventricles are normal for age. No evidence of midline shift, mass lesion, hemorrhage or acute infarction. No extraaxial fluid collections are seen. Posterior Fossa: The cerebellum and brainstem are intact. The 4th ventricle is midline. The cerebe llopontine angle is unremarkable. Extracranial: The visualized portion of the orbits is intact. Skull: The calvaria is intact. No evidence of skull fracture. CONCLUSION: 1. No acute intracranial abnormalities. . Electronically signed by: Mauro Cleveland MD 10/04/2018 7:41 PM EST
[2018-10-04 19:45] LABS: Chloride 104 meq/L (98-107); Potassium 3.5 meq/L (3.5-5.1); Sodium 143 meq/L (136-145)
[2018-10-04 19:48] LABS: Calcium 9.8 mg/dL (8.5-10.1)
[2018-10-04 19:49] LABS: Albumin 3.5 g/dL (3.4-5.0); Anion Gap 4 meq/L (5-15); Blood Urea Nitrogen 17 mg/dL (7-18); Carbon Dioxide 35.2 meq/L (21.0-32.0); Glucose,Random 100 mg/dL (74-106)
[2018-10-04 19:52] LABS: Alanine Aminotransferase 15 U/L (10-53); Aspartate Aminotransferase 19 U/L (15-37); Glomerular Filtration Rate 66 mL/min (>89)
[2018-10-04 19:53] LABS: Total Protein 6.9 g/dL (6.4-8.2)
[2018-10-04 19:55] LABS: Alkaline Phosphatase 81 U/L (45-117)
[2018-10-04 23:15] LABS: Bilirubin,Urine Negative (Negative); Clarity,Urine Clear (Clear); Color,Urine Yellow (Yellw/Straw); Glucose,Urine (UA) Negative (Negative); Leukocyte Esterase,Urine Negative (Negative); Nitrite,Urine Negative (Negative); PH,Urine 5.5 (5.0-8.5); Urobilinogen,Urine 0.2 mg/dL (Less than 2)
[2018-10-04 23:24] LABS: Amorphous Sediment,Urine Few /hpf; Amphetamine Screen,Urine Neg (Neg); Barbiturate Screen,Urine Neg (Neg); Cannabinoid Screen,Urine Neg (Neg); Cocaine Screen,Urine Neg (Neg); Squamous Epithelial Cell,Urine 0-5 /hpf (0-5); WBC,Urine 0-5 /hpf (0-5)
[2018-10-05] MEDS ORDERED: Bisacodyl 10 MG Supp RECTAL PRN (00:01)
[2018-10-05] MEDS ORDERED: Acetaminophen 325 MG Tablet PO PRN (00:01)
[2018-10-05 00:54] LABS: Opiate Screen,Urine Neg (Neg)
[2018-10-05 06:30] LABS: Chloride 107 meq/L (98-107); Potassium 3.4 meq/L (3.5-5.1); Sodium 145 meq/L (136-145)
[2018-10-05 06:33] LABS: Calcium 9.5 mg/dL (8.5-10.1)
[2018-10-05 06:34] LABS: Albumin 3.1 g/dL (3.4-5.0); Anion Gap 3 meq/L (5-15); Blood Urea Nitrogen 14 mg/dL (7-18); Carbon Dioxide 35.5 meq/L (21.0-32.0); Glucose,Random 95 mg/dL (74-106)
[2018-10-05 06:36] LABS: Alanine Aminotransferase 13 U/L (10-53)
[2018-10-05 06:37] LABS: Aspartate Aminotransferase 18 U/L (15-37); Baso % (Auto) 0.5 % (0.0-2.0); Eos # (Auto) 0.3 th/mm3 (0.0-0.4); Eos % (Auto) 4.5 % (0.0-4.0); Glomerular Filtration Rate 80 mL/min (>89); Hematocrit 30.5 % (35.0-46.0); Hemoglobin 9.6 gm/dL (11.6-15.3); Lymph # (Auto) 2.4 th/mm3 (1.0-4.8); Lymph % (Auto) 41.2 % (9.0-44.0); Mean Corpuscular HGB Conc 31.5 % (32.0-36.0); Mean Corpuscular Hemoglobin 25.6 pg (27.0-34.0); Mean Corpuscular Volume 81.1 fL (80.0-100.0); Mean Platelet Volume 7.9 fL (7.0-11.0); Mono # (Auto) 0.6 th/mm3 (0.0-0.9); Mono % (Auto) 10.8 % (0.0-8.0); Neut # (Auto) 2.6 th/mm3 (1.8-7.7); Platelet Count 229 th/mm3 (150-450); Red Blood Count 3.77 mil/mm3 (4.00-5.30); Red Cell Distribution Width 16.7 % (11.6-17.2); White Blood Count 5.9 th/mm3 (4.0-11.0)
[2018-10-05 06:38] LABS: Total Protein 6.1 g/dL (6.4-8.2)
[2018-10-05 06:39] LABS: Alkaline Phosphatase 68 U/L (45-117)
[2018-10-05] MEDS: Sod Chloride 0.9% Inj 1,000 ML IV.CONT SCH ×2 (07:13→11:09)
[2018-10-05] MEDS: Senna/Docusate Sodium 8.6/50 MG Tablet PO SCH ×2 (09:05→21:03)
[2018-10-05] MEDS: oxyCODONE/Acetaminophen 10/325 Tablet PO PRN (12:35)
--- NOTE | 2018-10-05 12:37 | P.HPIM ---
History of Present Illness Primary Care Physician: UNKNOWN Chief Complaint: fall History of Present Illness: 78-year-old female who has chronic pain syndrome states that she has not been doing well recently with weakness and recent fall. She states she cannot say why she fell, that she is more confused and weak. She denies fever chills shortness of breath chest pain nausea vomiting diarrhea or other symptoms. Patient recently had her pain pump filled with Dilaudid by her doctor a couple weeks ago. She denies injury during her fall, she denies preceding symptoms of lightheadedness dizziness chest pain palpitations or other symptoms. PMhx: Arthritis, degenerative disc disease, chronic pain syndrome, GERD, glaucoma, PSXhx: Hysterectomy, cataracts, pain pump, appendectomy, knee surgery, cervical spine, lumbar spine, SOChx: Denies tobacco, denies alcohol, lives alone, FAMhx: Denies premature cardiac disease stroke or cancer Review of Systems Negative for significant contributory symptoms other than noted above, patient is complaining of bilateral foot pain, cervical neck pain PMFSH Medical History Medical History History of hysterectomy (Acute) Surgical History Surgical History History of back surgery (Acute) History of bilateral knee replacement (Acute) History of tonsillectomy and adenoidectomy (Acute) Hx of appendectomy (Acute) Social History Social History Substance History: No History of Abuse Second Hand Smoke Exposure: No Smoking Status: Never smoker How Often Do You Have a Drink Containing Alcohol: Never Recent Out of Country Travel within the Last 8 Weeks: No Immunization History Tetanus Immunization: <5 Years Medications and Allergies Allergies Allergy/AdvReac Type Severity Reaction Status Date / Time morphine Allergy Severe itching Verified 10/04/18 16:53 Sulfa (Sulfonamide Allergy Severe ERYTHEMA Verified 10/04/18 16:53 Antibiotics) NODOSUM codeine Allergy Intermediate NAUSEA;LIGHT Verified 10/04/18 16:53 HEADED; FAINT ciprofloxacin AdvReac Severe Cramping Verified 10/04/18 16:53 donepezil [From Aricept] AdvReac Severe CRAMPING Verified 10/04/18 16:53 MACADEMIA NUTS Allergy Unknown VOMITING Uncoded 10/04/18 16:53 AND DIARRHEA Home Medications Medication Instructions Recorded Confirmed Type ascorbic acid (vitamin C) 1,000 mg PO DAILY 05/23/18 05/23/18 History aspirin [Aspir-Low] 81 mg PO DAILY 05/23/18 05/23/18 History clonazepam 1 mg PO TID 05/23/18 05/23/18 History esomeprazole magnesium [Nexium] 40 mg PO BID 05/23/18 05/23/18 History multivitamin [Multiple Vitamins] 1 tab PO DAILY 05/23/18 05/23/18 History oxycodone-acetaminophen [Percocet] 1 tab PO Q6H PRN 05/23/18 05/23/18 History potassium chloride 20 meq PO DAILY 05/23/18 05/23/18 History torsemide 20 mg PO DAILY 05/23/18 05/23/18 History trazodone 50 mg PO HS 05/23/18 05/23/18 History Dilaudid 10/04/18 10/04/18 History Paxil CR 37.5 mg PO DAILY 10/04/18 10/04/18 History butalbital-acetaminophen 10/04/18 History eszopiclone [Lunesta] 10/04/18 History lorazepam 10/04/18 10/04/18 History spironolactone PO BID 10/04/18 History Active Medications: Active Medications Acetaminophen (Tylenol) 650 mg PO Q4H PRN PRN Reason: Temp > 100.4 Al Hydroxide/Mg Hydroxide (Milk Of Magnesia Liq) 30 ml PO Q12H PRN PRN Reason: Mild Constipation Bisacodyl (Dulcolax Supp) 10 mg RECTAL DAILY PRN PRN Reason: SEVERE CONSITIPATION Sodium Chloride (Ns Inj) 1,000 mls @ 100 mls/hr IV.CONT .Q10H DARRYN Last Admin: 10/05/18 11:09 Dose: Not Given Lactulose (Lactulose Liq) 30 ml PO DAILY PRN PRN Reason: SEVERE CONSITIPATION Ondansetron HCl (Zofran Inj) 4 mg IV.PUSH Q6H PRN PRN Reason: NAUSEA OR VOMITING Oxycodone/Acetaminophen (Percocet 10/325 Mg) 1 tab PO Q4H PRN PRN Reason: PAIN SCALE 6 TO 10 Senna/Docusate Sodium (Prachi-Colace) 1 tab PO BID [facility] Last Admin: 10/05/18 09:05 Dose: 1 tab Sennosides (Senokot) 17.2 mg PO Q12H PRN PRN Reason: Moderate Constipation Sodium Chloride (Ns Flush) 2 ml IV.FLUSH BID [facility] Last Admin: 10/05/18 09:05 Dose: Not Given Sodium Chloride (Ns Flush) 2 ml IV.FLUSH PRN PRN PRN Reason: FLUSH AFTER USING IV ACCESS Physical Exam Vital signs: Last Vital Signs Temp 96.9 F L 10/05/18 08:00 Pulse 63 10/05/18 08:00 Resp 20 10/05/18 08:00 BP 107/53 L 10/05/18 08:00 Pulse Ox 92 L 10/05/18 10:37 Intake & Output 10/03/18 10/04/18 10/05/18 10/06/18 06:59 06:59 06:59 06:59 Intake Total 120 / 120 Balance 120 / 120 Weight 73.2 kg Results Labs CBC & Chem 7: 10/05/18 06:10 10/05/18 06:[address] 10/04/18 18:54 CONCLUSION: 1. No acute intracranial abnormalities. . Caprini VTE Risk Assessment Caprini VTE Risk Assessment: Moderate/High Risk (score >= 2) Caprini Risk Assessment Model: Point Value = 1 Point Value = 2 Point Value = 3 Point Value = 5 Age 41-60 Minor surgery BMI > 25 kg/m2 Swollen legs Varicose veins or History of unexplained or recurrent spontaneous Oral contraceptives or hormone replacement Sepsis (< 1 month) Serious lung disease, including pneumonia (< 1 month) Abnormal pulmonary function Acute myocardial infarction Congestive heart failure (< 1 month) History of inflammatory bowel disease Medical patient at bed rest Age 61-74 Arthroscopic surgery Major open surgery (> 45 min) Laparoscopic surgery (> 45 min) Malignancy Confined to bed (> 72 hours) Immobilizing plaster cast Central venous access Age >= 75 History of VTE Family history of VTE Factor V Leiden Prothrombin 27860H Lupus anticoagulant Anticardiolipin antibodies Elevated serum homocysteine Heparin-induced thrombocytopenia Other congenital or acquired thrombophilia Stroke (< 1 month) Elective arthroplasty Hip, pelvis, or leg fracture Acute spinal cord injury (< 1 month) Prophylaxis Regimen: Total Risk Factor Score Risk Level Prophylaxis Regimen 0-1 Low Early ambulation 2 Moderate Order ONE of the following: *Sequential Compression Device (SCD) *Heparin 5000 units SQ BID 3-4 Higher Order ONE of the following medications: *Heparin 5000 units SQ TID *Enoxaparin/Lovenox 40 mg SQ daily (WT < 150 kg, CrCl > 30 mL/min) *Enoxaparin/Lovenox 30 mg SQ daily (WT < 150 kg, CrCl > 10-29 mL/min) *Enoxaparin/Lovenox 30 mg SQ BID (WT < 150 kg, CrCl > 30 mL/min) AND/OR *Sequential Compression Device (SCD) 5 or more Highest Order ONE of the following medications: *Heparin 5000 units SQ TID (Preferred with Epidurals) *Enoxaparin/Lovenox 40 mg SQ daily (WT < 150 kg, CrCl > 30 mL/min) *Enoxaparin/Lovenox 30 mg SQ daily (WT < 150 kg, CrCl > 10-29 mL/min) *Enoxaparin/Lovenox 30 mg SQ BID (WT < 150 kg, CrCl > 30 mL/min) AND *Sequential Compression Device (SCD) Assessment and Plan Plan FALL w genereralized weakness, nonsyncopal and may be related to pain meds and or lunesta, per daughter patient takes too much of her medications, patient is also forgetful, will perhaps require medication administration and closer monitoring at home or in a controlled environment, she is stable for discharge home when arranged with family in am. CHRONIC PAIN/ DDD/DJD - cont pain control as tolerated. GERD - cont ppi HYPOKALEMIA - will replace k hx HTN - cont home meds dc plan home w [facility] when family arrives in am. H&P: Quality VTE Deep Vein Thrombosis/Pulmonary Embolism Present on Admission: No
--- NOTE | 2018-10-05 14:28 | P.DCO ---
Diagnosis (1) Fall: Status: Acute Physical Therapy Order: Evaluate and treat, Improve ambulation and Strength and gait training Home Health Nursing Order: Medical education and Nursing assessment with vital signs Case Management Consult Case Management Consult-Home Health: Yes I have seen patient Vera Chappell on 10/05/18. My clinical findings support the need for the requested home health care services because: Deconditioned with increased weakness and Medication compliance is questionable I certify that my clinical findings support that this patient is homebound because: Unsteady gait/balance and Unsafe to leave home unassisted
[2018-10-06] MEDS: oxyCODONE/Acetaminophen 10/325 Tablet PO PRN ×2 (01:49→08:36)
[2018-10-06] MEDS: Sod Chloride 0.9% Inj 1,000 ML IV.CONT SCH ×2 (01:49→10:24)
[2018-10-06] MEDS: Senna/Docusate Sodium 8.6/50 MG Tablet PO SCH (08:36)
--- NOTE | 2018-10-06 11:38 | P.DS ---
DS: Providers Date of admission: 10/05/18 00:01 Primary care physician: UNKNOWN Brief History from admission: 78-year-old female who has chronic pain syndrome states that she has not been doing well recently with weakness and recent fall. She states she cannot say why she fell, that she is more confused and weak. She denies fever chills shortness of breath chest pain nausea vomiting diarrhea or other symptoms. Patient recently had her pain pump filled with Dilaudid by her doctor a couple weeks ago. She denies injury during her fall, she denies preceding symptoms of lightheadedness dizziness chest pain palpitations or other symptoms. PMhx: Arthritis, degenerative disc disease, chronic pain syndrome, GERD, glaucoma, PSXhx: Hysterectomy, cataracts, pain pump, appendectomy, knee surgery, cervical spine, lumbar spine, SOChx: Denies tobacco, denies alcohol, lives alone, FAMhx: Denies premature cardiac disease stroke or cancer DS: Diagnosis Discharge Diagnosis (1) Fall: Status: Acute DS: Summary Patient was admitted for observation and seen in consultation by physical therapy. Patient had no evidence of altered mentation, she was at her baseline , CT of head was unremarkable for acute event, and it was felt that her multiple medications and concerns for her compliance or the etiology of her episode. Case management was consulted and had discussion with the patient's daughter regarding long-term management and care, patient was otherwise clinically stable for discharge home and outpatient follow-up, I recommend careful review of her medications at home and management of her polypharmacy with her primary care physician.. Time Spent with Patient Total time spent providing and/or coordinating discharge services: Greater than 30 minutes Status at Discharge Functional status at discharge: independent ambulation Overall status at discharge: patient is progressing back to baseline Quality: VTE Deep Vein Thrombosis/Pulmonary Embolism Present on Admission: No Exam Narrative Exam Narrative: Pleasant 78-year-old female who is awake alert oriented no acute distress with mild forgetfulness HEENT normocephalic atraumatic pupils equal reactive Heart S1-S2 regular without significant murmur gallops clicks Lungs clear bilateral no wheeze no rhonchi Abdomen soft nondistended Extremities no clubbing cyanosis no edema no calf tenderness pulses palpable Results Impressions ITS Impressions Head CT 10/04/18 18:54 CONCLUSION: 1. No acute intracranial abnormalities. . Discharge Plan Discharge Disposition Patient Disposition: 06 Disch W/Home Health Service Discharge Condition Condition: Good Discharge Order Discharge Orders: Discharge Order (Routine); Ordered 10/05/18 Ordered By: Batool Hollis Physicians Team Primary Care Provider: UNKNOWN, Attending Provider: Batool Hollis Rxs /Orders / Referrals /Forms Prescriptions: Continue multivitamin [Multiple Vitamins] Tablet 1 tab PO DAILY RF: 0 ascorbic acid (vitamin C) 1,000 mg Tablet 1,000 mg PO DAILY RF: 0 torsemide 20 mg Tablet 20 mg PO DAILY RF: 0 trazodone 50 mg Tablet 50 mg PO HS RF: 0 clonazepam 1 mg Tablet 1 mg PO TID RF: 0 aspirin [Aspir-Low] 81 mg Tablet,Delayed Release (Dr/Ec) 81 mg PO DAILY RF: 0 oxycodone-acetaminophen [Percocet] 10-325 mg Tablet 1 tab PO Q6H PRN (Reason: Pain) RF: 0 esomeprazole magnesium [Nexium] 40 mg Capsule,Delayed Release(Dr/Ec) 40 mg PO BID RF: 0 spironolactone 25 mg Tablet PO BID RF: 0 eszopiclone [Lunesta] 1 mg Tablet RF: 0 butalbital-acetaminophen 25-325 mg Tablet RF: 0 Paxil CR 37.5 mg PO DAILY RF: 0 Discontinued potassium chloride 20 mEq Tablet,Er Particles/Crystals 20 meq PO DAILY RF: 0 lorazepam 0.5 mg Tablet RF: 0 Dilaudid RF: 0 Referrals: UNKNOWN, [Primary Care Provider] - See Instructions ( Please call the physician's office to book the appointment to be seen within [2-3 days]. Your Health Problems: Goals to Promote Your Health: To prevent worsening of your condition To maintain your health at the optimal level Directions to Meet Your Goals: Take your medications as prescribed Follow your dietary instruction Follow activity as directed Keep your appointments as scheduled Take your immunizations and boosters as scheduled If your symptoms worsen call your PCP If no PCP go to Urgent Care or Emergency Room Smoking is dangerous to your health. Avoid second hand smoke. You may reach the 24-hour crisis hotline for domestic abuse at . Please call the physician's office to book the appointment to be seen within [].) Status ED Status: Left Department
--- NOTE | 2018-10-06 17:47 | ECG ---
Date Performed: 10/04/2018 Time Performed: 19:06:53 PTAGE: 77 years EKG: Sinus rhythm NORMAL ECG PREVIOUS TRACING : 01/20/2018 17.36 DOCTOR: Mich Julien Interpretating Date/Time 10/06/2018 17:32:08
== END 2018-10-06 13:20 | disposition home health service (06) ==
LOC: PHEDA 16:36 → PHED 16:36 → PHEDA 10-05 02:15 → PH3 10-05 02:36
PROVIDERS: ADMIT Internal Medicine; ATTEND Internal Medicine